=== PATIENT | female | born 1975 | race African-American/Black ===

== ENCOUNTER 2018-08-28 21:29 | Emergency (ER) | payer MEDICARE ==
[~2018-08-28] VITALS: Ht 160 cm; Wt 77.3 kg
[2018-08-28 21:30] VITALS: BP 135/94
[2018-08-28] MEDS ORDERED: CLAR10CA3 PO (22:20)
[2018-08-28] MEDS ORDERED: PROZ10CA7 PO (22:20)
[2018-08-28] MEDS ORDERED: ONDANSETRON 4MG/2ML VIAL (J2405) IV ONE (23:00)
[2018-08-28] MEDS ORDERED: NS 1,000 ML IV ONE (23:00)
[2018-08-28] MEDS ORDERED: KETOROLAC 30 MG/ML VIAL (J1885) IV ONE (23:00)
[2018-08-28] MEDS ORDERED: diphenhydrAMINE INJ 50MG/ML VIAL (J1200) IV ONE (23:00)
== END 2018-08-29 00:02 | disposition home or self-care (01) ==
LOC: M ED 21:29
DX: G43.909 Migraine, unspecified, not intractable, without status migrainosus (principal); M79.7 Fibromyalgia; M06.9 Rheumatoid arthritis, unspecified; F33.9 Major depressive disorder, recurrent, unspecified; F41.9 Anxiety disorder, unspecified; M48.00 Spinal stenosis, site unspecified; Z79.899 Other long term (current) drug therapy
CPT/HCPCS: 96374; 96375; 99284; J1200; J1885; J2405